=== PATIENT | male | born 1985 | race Two or more races ===

== ENCOUNTER 2021-07-29 11:47 | Outpatient (REF) | payer MEDICARE, MEDICAID, SELFPAY ==
[2021-07-29 12:09] LABS: MANUAL DIFF FLAG NO
[2021-07-29 13:17] LABS: Basophils Absolute Auto 0.1 X10*3/uL (0.0-0.2); Basophils Percent Auto 0.5 % (0-2); Eosinophils Absolute Auto 0.6 X10*3/uL (0.0-0.4); Hematocrit 47.2 % (42.0-52.0); Hemoglobin 16.2 g/dl (14.0-18.0); Imm Gran Abs Auto 0.06 X10*3/uL (0.00-0.03); Imm Gran Pct Auto 0.5 % (0.0-0.4); Lymphocytes Absolute Auto 3.1 X10*3/uL (1.2-4.9); Mean Corpuscular HGB Conc 34.3 g/dl (31.0-36.0); Mean Corpuscular Hemoglobin 30.9 pg (27.0-33.0); Mean Corpuscular Volume 90.1 fL (80.0-98.0); Mean Platelet Volume 8.6 fL (9.4-12.4); Monocytes Percent Auto 8.4 % (2-11); Neutrophils Absolute Auto 7.1 x10*3/uL (2.0-8.3); Neutrophils Percent Auto 59.6 % (45-73); Platelet Count 366 X10*3/uL (160-400); Red Blood Count 5.24 X10*6/uL (4.60-5.80); Red Cell Distribution Width 12.2 % (11.0-16.0); White Blood Count 11.9 X10*3/uL (4.8-10.8)
[2021-08-01 03:22] LABS: Immunoglobulin E 53 kU/L (<OR=114)
== END 2021-07-29 11:48 | disposition home or self-care (01) ==
LOC: HO.LAB 11:47
PROVIDERS: PCP Family Medicine; Visit Provider Family Medicine
DX: J45.909 Unspecified asthma, uncomplicated (principal); D72.10 Eosinophilia, unspecified
CPT/HCPCS: 36415; 82785; 85025

== ENCOUNTER 2022-06-11 16:46 | Outpatient (REF) | payer MEDICARE, MEDICAID, SELFPAY ==
[2022-06-11 18:04] LABS: Alanine Aminotransferase 44 U/L (0-40); Anion Gap 14 (12-20); Aspartate Amino Transferase 31 U/L (5-37); Blood Urea Nitrogen 12 mg/dL (9-16); Carbon Dioxide 24 mmol/L (22-29); Chloride 104 mmol/L (96-108); Estimated Glomerular Filt Rate > 60; Potassium 4.3 mmol/L (3.3-5.1); Sodium 138 mmol/L (135-145)
== END 2022-06-11 16:47 | disposition home or self-care (01) ==
LOC: HO.LAB 16:46
PROVIDERS: PCP Family Medicine; Visit Provider Family Medicine
DX: I10 Essential (primary) hypertension (principal); E78.00 Pure hypercholesterolemia, unspecified; Z79.899 Other long term (current) drug therapy
CPT/HCPCS: 36415; 80051; 82550; 82565; 84450; 84460; 84520

== ENCOUNTER 2022-12-10 10:40 | Outpatient (REF) | payer MEDICARE, MEDICAID, SELFPAY | END 2022-12-10 10:41 | disposition home or self-care (01) | LOC: HO.LAB 10:40 | PROVIDERS: PCP Family Medicine; Visit Provider Family Medicine | DX: E78.00 Pure hypercholesterolemia, unspecified (principal); M19.90 Unspecified osteoarthritis, unspecified site; Z79.899 Other long term (current) drug therapy | CPT/HCPCS: 36415; 82550; 84450; 84460; 85025; 85652; 86038; 86431 ==

== ENCOUNTER 2023-03-17 11:05 | Outpatient (REF) | payer MEDICARE, MEDICAID, SELFPAY | END 2023-03-17 11:06 | disposition home or self-care (01) | LOC: HO.XRAY 11:05 | PROVIDERS: PCP Family Medicine; Visit Provider Family Medicine | DX: Z13.89 Encounter for screening for other disorder (principal) ==

== ENCOUNTER 2023-04-05 16:44 | Outpatient (REF) | payer MEDICARE, MEDICAID, SELFPAY ==
--- NOTE | ~2023-04-05 | XR_ITS ---
EXAMINATION: XR CHEST CLINICAL INFORMATION: Asthma. COMPARISON: None available. TECHNIQUE: 2 views of the chest were obtained. FINDINGS: There is no gross pneumothorax. Lung volumes are low. Heart size is normal. No pleural effusion. No focal consolidation to suggest pneumonia. XR/XR chest 2V IMPRESSION: Low lung volumes. No evidence of pneumonia.
== END 2023-04-05 16:45 | disposition home or self-care (01) ==
LOC: HO.XRAY 16:44
PROVIDERS: PCP Family Medicine; Visit Provider Family Medicine
DX: J45.909 Unspecified asthma, uncomplicated (principal)
CPT/HCPCS: 71046

== ENCOUNTER 2023-05-13 10:11 | Outpatient (REF) | payer MEDICARE, MEDICAID, SELFPAY | END 2023-05-13 10:12 | disposition home or self-care (01) | LOC: HO.SH 10:11 | PROVIDERS: Visit Provider Family Medicine | DX: Z01.118 Encounter for examination of ears and hearing with other abnormal findings (principal); H93.293 Other abnormal auditory perceptions, bilateral | CPT/HCPCS: 92552; 92555; 92567 ==

== ENCOUNTER 2023-06-18 10:57 | Outpatient (REF) | payer MEDICARE, MEDICAID, SELFPAY ==
[2023-06-18 13:32] LABS: MANUAL DIFF FLAG NO
[2023-06-18 13:35] LABS: Basophils Absolute Auto 0.1 X10*3/uL (0.0-0.2); Basophils Percent Auto 0.5 % (0-2); Eosinophils Absolute Auto 0.8 X10*3/uL (0.0-0.4); Hematocrit 42.6 % (42.0-52.0); Hemoglobin 14.7 g/dl (14.0-18.0); Imm Gran Abs Auto 0.04 X10*3/uL (0.00-0.03); Imm Gran Pct Auto 0.4 % (0.0-0.4); Lymphocytes Absolute Auto 2.7 X10*3/uL (1.2-4.9); Lymphocytes Percent Auto 24.7 % (20-40); Mean Corpuscular HGB Conc 34.5 g/dl (31.0-36.0); Mean Corpuscular Hemoglobin 30.5 pg (27.0-33.0); Mean Corpuscular Volume 88.4 fL (80.0-98.0); Mean Platelet Volume 8.4 fL (9.4-12.4); Monocytes Absolute Auto 0.8 X10*3/uL (0.1-1.2); Monocytes Percent Auto 7.4 % (2-11); Neutrophils Absolute Auto 6.5 x10*3/uL (2.0-8.3); Platelet Count 333 X10*3/uL (160-400); Red Blood Count 4.82 X10*6/uL (4.60-5.80); Red Cell Distribution Width 12.2 % (11.0-16.0); White Blood Count 10.8 X10*3/uL (4.8-10.8)
[2023-06-18 13:46] LABS: Alanine Aminotransferase 21 U/L (0-40); Aspartate Amino Transferase 15 U/L (5-37)
== END 2023-06-18 10:58 | disposition home or self-care (01) ==
LOC: HO.HMGCLDS 10:57
PROVIDERS: PCP Family Medicine; Visit Provider Family Medicine
DX: E78.00 Pure hypercholesterolemia, unspecified (principal); J45.909 Unspecified asthma, uncomplicated; K21.9 Gastro-esophageal reflux disease without esophagitis; Z79.899 Other long term (current) drug therapy
CPT/HCPCS: 36415; 82550; 84450; 84460; 85025

== ENCOUNTER 2024-11-06 10:03 | Outpatient (AMB) | payer MEDICARE, MEDICAID, SELFPAY ==
--- NOTE | 2024-11-06 10:06 | A.OFFPC_ITS ---
Vital Signs 11/06/24 10:11 Height 5 ft 2 in Weight 183 lb BMI 33.5 BP 126/80 Blood Pressure Location Rt brachial Position Sitting Respiration 17 Pulse 75 Pulse Source Pulse Oximeter Temp 97.0 F Temp Source Temporal Artery Scan Pulse Oximetry (%) 98 Oxygen Delivery Method Room Air Intake Visit Reasons: routine Marketing/Sales Person Required: No Accompanied by: casting house laborer-Margaret Allergies No Known Allergies Allergy (Verified 11/06/24 10:06) Tobacco use date assessed: 11/06/24 HPI HPI Comments History of Present Illness Details The patient is a 39-year-old male presenting for a wellness examination. He is diagnosed with Autism Spectrum Disorder, and he has reportedly been taking medications including simvastatin for hyperlipidemia and metoprolol for essential hypertension. He is also being monitored for glaucoma by an band head saw operator. Although he is suspected of having asthma, this diagnosis has not been confirmed with testing. There were reports of using humidifiers but no official testing or use of inhalers. The patient denies episodes of wheezing or shortness of breath, even during physical activities such as frequent travels to [facility]. Historically, the patient has shown no complaints of pain, without history or presence of chest pain, headaches, joint pain, or respiratory distress. The patient denies previous surgeries and does not have a known family history of significant medical conditions like heart disease, cancer, or diabetes. Furthermore, there are no reported previous issues with substance use. Medical History: - Autism Spectrum Disorder - Essential Hypertension - Hyperlipidemia - Possible Glaucoma (under observation) - Suspected Asthma (no testing or treatm ent confirmed) Surgical History: - No prior surgeries reported Medications: - Simvastatin for Hyperlipidemia - Metoprolol for Essential Hypertension - Timolol eye drops (used for suspected glaucoma management) - Famotidine (use not specified) Family History: - Denies family history of heart disease , cancer, or diabetes Social: - Lives in a long-term. - Satisfactory energy levels, overall go od mood, and enjoys food in moderation. - Denies smoking, alcohol, or illicit dr ug use. - Notes anxiety sometimes, potentially r elated to his autism. [facility] Medical History (Updated 11/06/24 @ 10:27 by Nico Westbrook MD) Hyperlipidemia Hypertension Social History Housing: Other Housing Other:: long-term e-Cigarette/Vaping Use: Never Used service: No Current occupational status: employed Current occupation: [employer] Questionnaire PHQ-9 Over the last 2 weeks, how often have you been bothered by any of the following problems? 1. Little interest or pleasure in doing things: not at all 2. Feeling down, depressed, or hopeless: not at all 3. Trouble falling or staying asleep, or sleeping too much: not at all 4. Feeling tired or having little energy: not at all 5. Poor appetite or overeating: not at all 6. Feeling bad about yourself - or that you are a failure or have let yourself or your family down: not at all 7. Trouble concentrating on things, such as reading the newspaper or watching television: not at all 8. Moving or speaking so slowly that other people could have noticed. Or the opposite - being so fidgety or restless that you have been moving around a lot more than usual: not at all 9. Thoughts that you would be better off or of hurting yourself in some way: not at all Total score: 0 Depression Screening Interpretation: Positive Depression Screening Done: Yes 43896 - PHQ-9 Billing: Yes Source: Developed by Drs. Brien Barlow, Macarena Hickey, Rupesh Azul and colleagues, with an educational pranay from [employer]. Thrive Questionnaire Date Thrive assessed: 11/06/24 I am a: Patient What is your living situation today?: I have a steady place to live Within the past 12 months, did the food you bought not last and you didn't have the money to get more?: Never true Within the past 12 months, did you worry whether your food would run out before you got money to buy more?: Never true Do you have trouble paying for medicines?: No Do you have trouble getting transportation to medical appointments?: No Do you have trouble paying your heating and electricity bill?: No Do you have trouble taking care of your child, family member or friend?: No Do you have trouble with day-to-day activities such as bathing, preparing meals, shopping, managing finances, etc.?: No Are you currently unemployed and looking for a job?: No Are you interested in more education?: No THRIVE Score: 0 AUDIT C Alcohol Use Questionnaire (AUDIT-C) 1. How often do you have a drink containing alcohol?: Never 3. How often do you have six or more drinks on one occasion?: Never Total Score: 0 Score Reviewed/Action Taken: Yes DINA-7 AMB Questionnaire DINA-7 Date DINA - 7 assessed: 11/06/24 Feeling nervous, anxious, or on edge: 1 = Several days Not being able to stop or control worryin = Not at all Worrying too much about different things: 0 = Not at all Trouble relaxin = Not at all Being so restless that it is hard to sit still: 0 = Not at all Becoming easily annoyed or irritable: 0 = Not at all Feeling afraid as if something awful might happen: 0 = Not at all Total DINA-7 score (0-4 normal; 5-9 mild; 10-14 moderate; 15-21 severe): 1 Source: Developed by Drs. Brien Barlow, Macarena Hickey, Rupesh Azul and colleagues, with an educational pranay from [employer]. DINA-7 Assessment Billing DINA-7 Assessment Tool: DINA-7 Assessment 64109 Review of Systems Const Details: - General: Denies chest pain, nausea, vomiting, diarrhea, or abdominal pain. - Head: Denies headaches. - Ears: Reports no hearing loss. - Eyes: Reports vision problems monitored for glaucoma. - Psychiatric: Denies current feelings of sadness, depression, or thoughts of self-harm. All systems reviewed & are unremarkable except as noted in HPI and below Physical exam (Primary Care) Vital Signs: Last Vital Signs Temp 97.0 F 11/06/24 10:11 Pulse 75 11/06/24 10:11 Resp 17 11/06/24 10:11 BP 126/80 11/06/24 10:11 Pulse Ox 98 11/06/24 10:11 Oxygen Delivery Method Room Air 11/06/24 10:11 BMI result Body Mass Index 33.5 Tobacco/Smoking Status: Tobacco use Status Tobacco use date assessed 11/06/24 11/06/24 10:14 e-Cigarette/Vaping Use Never Used 11/06/24 10:14 PHQ-9: PHQ-9 Score PHQ-9: Total score 0 11/06/24 10:20 Depression Screening Interpretation: Positive Thrive Assessment: Date of Thrive Assessment Date Thrive assessed 11/06/24 11/06/24 10:20 Const Other: General: Alert and oriented, Well nourished, No acute distress. Eye: Pupils are equal, round and reactive to light, Intact accommodation, Extraocular movements are intact, Normal conjunctiva, Vision unchanged, Monitoring for glaucoma. HENT: Normocephalic, Atraumatic, Tympanic membranes are clear, Normal hearing, Oral mucosa is moist, No pharyngeal erythema, Ear canals patent. Respiratory: Lungs CTA bilaterally, No wheeze, Respirations are non-labored, No history of asthma symptoms. Cardiovascular: Regular rate, Regular rhythm, S1 auscultated, S2 auscultated, No murmur, Good pulses equal in all extremities, Normal peripheral perfusion, No edema. Gastrointestinal: Soft, Non-tender, Non-distended, Normal bowel sounds, No organomegaly. Musculoskeletal: Normal range of motion, Normal strength, No tenderness, No swelling, No deformity, Normal gait. Integumentary: Warm, Dry, [place], Intact. Neurologic: Alert, Oriented, Normal sensory, Normal motor function, No focal defects, Cranial Nerves II-XII are grossly intact, Normal deep tendon reflexes. Psychiatric: Cooperative, Appropriate mood & affect, Normal judgment, Reports occasional anxiety. Coding Level of Care Code New Pt Level 4 (37168) Complex EM visit Add On G2211 Diagnoses Hypertension I10 Hyperlipidemia E78.5 Asthma J45.909 Additional Codes DINA-7 Assessment Billing - DINA-7 Assessment Tool: DINA-7 Assessment 46573 ([id number]) PHQ-9 - 92994 - PHQ-9 Billing: Yes ([id number]) Assessment & Plan Assessment & Plan (1) Hypertension: Comment: - Continue with the current use of metoprolol. - Monitor blood pressure levels in subsequent visits. - Well controlled in clinic Code(s): I10 - Essential (primary) hypertension Category: Medical (2) Hyperlipidemia: Comment: - Consider adjusting usage of simvastatin pending current cholesterol panel results. - Ordered laboratory test for up-to-date cholesterol levels. Code(s): E78.5 - Hyperlipidemia, unspecified Category: Medical (3) Asthma: Comment: - Order spirometry to determine if criteria for asthma are met and if inhaler use is necessary. Code(s): J45.909 - Unspecified asthma, uncomplicated Category: Medical Plan 3. Glaucoma - Continue monitoring with ophthalmology. - Ensure compliance with timolol eye drops. 4. Autism Spectrum Disorder - Continue supportive care and behavioral monitoring I discussed the likelihood of essential hypertension and hyperlipidemia as major health considerations with the patient. We reviewed the current medication regimen and the potential need for refinements based on new diagnostic test results, such as the cholesterol panel. We addressed suspected asthma but clarified the need for spirometry to ensure accurate diagnosis before proceeding with inhaler use. The patient did not present immediate medical concerns and reported no significant distress apart from occasional anxiety, possibly linked to Autism Spectrum Disorder. Orders: Orders 2 Comprehensive Met. Panel Today E78.5 - Hyperlipidemia, unspecified, I10 - Essential (primary) hypertension Hepatitis A,B,C Profile Today E78.5 - Hyperlipidemia, unspecified, I10 - Essential (primary) hypertension HIV Ab/Ag Today E78.5 - Hyperlipidemia, unspecified, I10 - Essential (primary) hypertension Vitamin D 25-OH Total Today E78.5 - Hyperlipidemia, unspecified, I10 - Essential (primary) hypertension Syphilis Screen Today E78.5 - Hyperlipidemia, unspecified, I10 - Essential (primary) hypertension Spirometry w/o Bronchodilator Today J45.909 - Unspecified asthma, uncomplicated Complete Blood Count Auto Diff Today E78.5 - Hyperlipidemia, unspecified, I10 - Essential (primary) hypertension Hemoglobin A1c Today E78.5 - Hyperlipidemia, unspecified, I10 - Essential (primary) hypertension TSH reflex Free T4 Today E78.5 - Hyperlipidemia, unspecified, I10 - Essential (primary) hypertension Lipid Panel Today E78.5 - Hyperlipidemia, unspecified, I10 - Essential (primary) hypertension Patient Instructions: - Continue taking current medications as prescribed. - Go for blood work as ordered, including cholesterol and glucose levels. - Follow through with spirometry testing to assess for asthma. - Schedule follow-up appointment in a month. - Maintain current lifestyle, noting moderation in diet. - Return for any new concerning symptoms or as advised in follow-up.
[2024-11-06 10:11] VITALS: BP 126/80; PULSE 75; RESP 17; TEMP 36.1; O2SAT 98; BMI 33.5
== END 2024-11-06 10:45 | disposition home or self-care (01) ==
LOC: HO.HMCHD 10:04
PROVIDERS: PCP Student in an Organized Health Care Education/Training Program; Visit Provider Student in an Organized Health Care Education/Training Program
DX: I10 Essential (primary) hypertension (principal); E78.5 Hyperlipidemia, unspecified; J45.909 Unspecified asthma, uncomplicated

== ENCOUNTER 2024-11-06 10:34 | Outpatient (REF) | payer MEDICARE, MEDICAID, SELFPAY ==
[2024-11-06 13:22] LABS: MANUAL DIFF FLAG NO
[2024-11-06 13:30] LABS: Hematocrit 43.7 % (42.0-52.0); Hemoglobin 15.0 g/dl (14.0-18.0); Imm Gran Abs Auto 0.04 X10*3/uL (0.00-0.03); Imm Gran Pct Auto 0.4 % (0.0-0.4); Lymphocytes Absolute Auto 2.6 X10*3/uL (1.2-4.9); Mean Corpuscular HGB Conc 34.3 g/dl (31.0-36.0); Mean Corpuscular Hemoglobin 30.5 pg (27.0-33.0); Mean Corpuscular Volume 89.0 fL (80.0-98.0); NRBC Abs Auto 0.000 X10*3/uL (0.0-0.012); NRBC Pct Auto 0.0 /100WBC (0.0-0.2); Platelet Count 349 X10*3/uL (160-400); Red Blood Count 4.91 X10*6/uL (4.60-5.80); White Blood Count 10.3 X10*3/uL (4.8-10.8)
[2024-11-06 14:00] LABS: Alanine Aminotransferase 28 U/L (0-40); Albumin Level 4.7 g/dL (3.5-5.0); Alkaline Phosphatase 81 U/L (39-117); Anion Gap 11 (12-20); Aspartate Amino Transferase 22 U/L (5-37); Blood Urea Nitrogen 13 mg/dL (9-16); Calcium 9.3 mg/dL (8.4-10.2); Carbon Dioxide 27 mmol/L (22-29); Chloride 104 mmol/L (96-108); Cholesterol 120 mg/dL (<200); Estimated Glomerular Filt Rate > 60; HDL Cholesterol 35 mg/dL (>40); Potassium 4.3 mmol/L (3.3-5.1); Sodium 138 mmol/L (135-145); Total Protein 7.7 g/dL (6.5-8.0); Triglycerides 212 mg/dL (<150)
[2024-11-07 08:04] LABS: Syphilis Screen Nonreactive (Nonreactive)
[2024-11-07 08:33] LABS: HBS Num1 579.09 mIU/mL (0-7.99); HBc Num1 0.13 S/CO (0.00-0.79); HBsAGNum1 0.36 S/CO (0.00-0.99); HIV Num 1 0.07 S/CO (0.00-0.99); Hepatitis A Antibody IgM 0.16 Index (0-0.79); Hepatitis B Surface Antigen Negative (Negative); ~HepC Num1 0.33 S/CO (0.00-0.79); ~Hepatitis A Antibody IgM Nonreactive (Nonreactive); ~Hepatitis B Surface Antibody REACTIVE (Nonreactive); ~Hepatitis C Antibody Nonreactive (Nonreactive)
== END 2024-11-06 10:35 | disposition home or self-care (01) ==
LOC: HO.10HDL 10:34
PROVIDERS: Visit Provider Student in an Organized Health Care Education/Training Program
DX: I10 Essential (primary) hypertension (principal); E78.5 Hyperlipidemia, unspecified; F84.0 Autistic disorder
CPT/HCPCS: 36415; 80053; 80061; 82306; 83036; 84443; 85025; 86704; 86706; 86709; 86780; 86803; 87340; 87389; 96127; 99202

== ENCOUNTER 2025-01-04 10:58 | Outpatient (AMB) | payer MEDICARE, MEDICAID, SELFPAY ==
[2025-01-04 11:06] VITALS: BP 128/80; PULSE 75; TEMP 36.6; O2SAT 96; BMI 31.8
--- NOTE | 2025-01-04 11:06 | A.OFFPC_ITS ---
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: No Accompanied by: Self / Same As Patient Allergies No Known Allergies Allergy (Verified 01/04/25 11:07) Medication List - Last Reconciled 01/04/25 by Nico Westbrook MD acetaminophen Take two tablets by mouth every 6 hrs prn for headache orally 4 times a day PRN; brimonidine 0.2% drps ophthalmic (eye) brinzolamide-brimonidine 1-0.2 % (Simbrinza) drps ophthalmic (eye) famotidine 40 mg PO DAILY fluticasone furoate 200 mcg/actuation (Arnuity Ellipta) 1 inh PO QAM guaifenesin (Guaifed (guaifenesin)) takes twofor cough teaspoons po q 4hrs prn orally every 4 hours PRN; latanoprost 0.005% 1 drp ophthalmic (eye) DAILY loperamide (Anti-Diarrheal (loperamide)) 4 mg (2 x 2 mg) PO DAILY PRN 30 days metoprolol succinate ER 50 mg PO DAILY simvastatin 40 mg PO BEDTIME Tobacco use date assessed: 01/04/25 Dental Screening Dental Screen Date: 01/04/25 Did you have a dental visit in the last 12 months?: Yes Did you have a dental problem in the last 6 months where you did not have access to dental care?: No HPI HPI Comments History of Present Illness0 Details The patient is a 39-year-old male presenting for an annual physical examination. He has a new diagnosis of diabetes mellitus based on blood work from three months ago in November, which revealed an A1c of 6.5. The patient's chronic conditions include hypertension managed with metoprolol, hyperlipidemia treated with simvastatin 40 mg, and gastroesophageal reflux disease controlled with famotidine. He takes Anoro Ellipta for breathing issues and uses latanoprost eye drops for glaucoma, for which he sees an court monitor. He also has a history of obstructive sleep apnea and uses a CPAP machine every night. His caregiver has noted postprandial bowel movements, suspecting IBS, though this was assessed as a potentially normal gastrocolic reflex. A standing order for loperamide for diarrhea exists, but it has never been administered. Past blood work from November showed a normal CBC, and screenings for hepatitis and HIV were negative. Medical History: - Diabetes Mellitus Type 2, newly diagno sed - Hypertension - Hyperlipidemia - Gastroesophageal Reflux Disease - Obstructive Sleep Apnea - Glaucoma - Breathing issues, unspecified - History of negative Hepatitis and HIV screening Surgical History: - No prior surgical history was discusse d. Medications: - Metoprolol every morning for hypertens ion - Famotidine for acid reflux - Simvastatin (Zocor) 40 mg every night - Anoro Ellipta for breathing issues - Loperamide (Imodium) as needed for ryne rrhea (standing order, has not been used) - Latanoprost eye drops - Cough syrup as needed - Tylenol as needed for pain Family History: - No family history was discussed. Diagnostic Results: - Vitals: Blood pressure 128/80 mmHg. - Labs (from November visit, 3 months a go): - A1c: 6.5% - CBC: Normal - Hepatitis panel: Negative - HIV screen: Negative Social History: - Housing: The patient lives in a chcf. - Employment: He works in a [employer] at [employer]. - Diet: He reportedly consumes excessive amounts of candy and sweets, with minimal supervision over his diet at work. [facility] Medical History (Updated 01/04/25 @ 11:56 by Nico Westbrook MD) Glaucoma SHAMAR on CPAP GERD (gastroesophageal reflux disease) Diabetes Hyperlipidemia Hypertension Family History (Updated 01/04/25 @ 11:21 by Ana Maria aMn MA) Mother No problems noted. Father No problems noted. Social History Housing: Other Housing Other:: halfway Patient Tobacco Use Status: Never used Tobacco e-Cigarette/Vaping Use: Never Used service: No Current occupational status: employed and other Current occupation: [employer] Cognitive needs: No Hearing needs: No Vision needs: Yes (rx glasses) Questionnaire PHQ-9 Over the last 2 weeks, how often have you been bothered by any of the following problems? 1. Little interest or pleasure in doing things: not at all 2. Feeling down, depressed, or hopeless: not at all 3. Trouble falling or staying asleep, or sleeping too much: not at all 4. Feeling tired or having little energy: not at all 5. Poor appetite or overeating: not at all 6. Feeling bad about yourself - or that you are a failure or have let yourself or your family down: not at all 7. Trouble concentrating on things, such as reading the newspaper or watching television: not at all 8. Moving or speaking so slowly that other people could have noticed. Or the opposite - being so fidgety or restless that you have been moving around a lot more than usual: not at all 9. Thoughts that you would be better off or of hurting yourself in some way: not at all Total score: 0 Depression Screening Interpretation: Negative Depression Screening Done: Yes 09284 - PHQ-9 Billing: Yes Source: Developed by Drs. Brien Barlow, Macarena Hickey, Rupesh Azul and colleagues, with an educational pranay from [employer]. Thrive Questionnaire Date Thrive assessed: 01/04/25 I am a: Patient Within the past 12 months, did the food you bought not last and you didn't have the money to get more?: Never true Within the past 12 months, did you worry whether your food would run out before you got money to buy more?: Never true Do you have trouble paying for medicines?: No Do you have trouble getting transportation to medical appointments?: No Do you have trouble paying your heating and electricity bill?: No Do you have trouble taking care of your child, family member or friend?: No Do you have trouble with day-to-day activities such as bathing, preparing meals, shopping, managing finances, etc.?: No Are you currently unemployed and looking for a job?: No Are you interested in more education?: No THRIVE Score: 0 AUDIT C Alcohol Use Questionnaire (AUDIT-C) 1. How often do you have a drink containing alcohol?: Never 3. How often do you have six or more drinks on one occasion?: Never Total Score: 0 Score Reviewed/Action Taken: Yes DINA-7 AMB Questionnaire DINA-7 Date DINA - 7 assessed: 01/04/25 Feeling nervous, anxious, or on edge: 0 = Not at all Not being able to stop or control worryin = Not at all Worrying too much about different things: 0 = Not at all Trouble relaxin = Not at all Being so restless that it is hard to sit still: 0 = Not at all Becoming easily annoyed or irritable: 0 = Not at all Feeling afraid as if something awful might happen: 0 = Not at all Total DINA-7 score (0-4 normal; 5-9 mild; 10-14 moderate; 15-21 severe): 0 Source: Developed by Drs. Brien Barlow, Macarena Hickey, Rupesh Azul and colleagues, with an educational pranay from [employer]. DINA-7 Assessment Billing DINA-7 Assessment Tool: DINA-7 Assessment 59887 Review of Systems Narrative - Constitutional: Reports feeling good. - Cardiovascular: Denies chest pain. - Respiratory: Denies shortness of breath. - Gastrointestinal: Denies nausea or vomiting, reports normal urination and defecation. - Neurological: Denies headaches. All systems reviewed & are unremarkable except as reviewed in HPI and above Physical exam (Primary Care) Vital Signs: Last Vital Signs Temp 97.8 F 01/04/25 11:06 Pulse 75 01/04/25 11:06 BP 128/80 01/04/25 11:06 Pulse Ox 96 01/04/25 11:06 Oxygen Delivery Method Room Air 01/04/25 11:06 BMI result Body Mass Index 31.8 Tobacco/Smoking Status: Tobacco use Status Tobacco use date assessed 01/04/25 01/04/25 11:08 Patient Tobacco Use Status Never used Tobacco 01/04/25 11:08 e-Cigarette/Vaping Use Never Used 01/04/25 11:08 PHQ-9: PHQ-9 Score PHQ-9: Total score 0 01/04/25 11:21 Depression Screening Interpretation: Negative Thrive Assessment: Date of Thrive Assessment Date Thrive assessed 01/04/25 01/04/25 11:08 Narrative General: Alert and oriented, Well nourished, No acute distress. Eye: Pupils are equal, round and reactive to light, Intact accommodation, Extraocular movements are intact, Normal conjunctiva, Vision unchanged. Latanoprost eye drops in use. HENT: Normocephalic, Atraumatic, Tympanic membranes are clear, Normal hearing, Oral mucosa is moist, No pharyngeal erythema, Ear canals patent. Respiratory: Lungs CTA bilaterally, No wheeze, Respirations are non-labored. CPAP machine used every night. Cardiovascular: Regular rate, Regular rhythm, S1 auscultated, S2 auscultated, No murmur, Good pulses equal in all extremities, Normal peripheral perfusion, No edema. Blood pressure 128/80. Gastrointestinal: Soft, Non-tender, Non-distended, Normal bowel sounds, No organomegaly. Reports frequent diarrhea, likely IBS. Musculoskeletal: Normal range of motion, Normal strength, No tenderness, No swelling, No deformity, Normal gait. Integumentary: Warm, Dry, [place], Intact. Neurologic: Alert, Oriented, Normal sensory, Normal motor function, No focal defects, Cranial Nerves II-XII are grossly intact, Normal deep tendon reflexes. Psychiatric: Cooperative, Appropriate mood & affect, Normal judgment. Coding Level of Care Code Est Pt Prev Care 40-64y(54018) Diagnoses Type 2 diabetes mellitus without complication, without long-term current use of insulin E11.9 Diabetes mellitus type: type 2 Diabetes mellitus termite control service representative insulin use: without alf use Diabetes mellitus complication status: without complication Hypertension, unspecified type I10 Hypertension type: unspecified Other hyperlipidemia E78.49 Hyperlipidemia type: other hyperlipidemia Asthma, unspecified asthma severity, unspecified whether complicated, unspecified whether persistent J45.909 Asthma severity: unspecified severity Asthma persistence: unspecified Asthma complication type: unspecified Gastroesophageal reflux disease without esophagitis K21.9 Esophagitis presence: without esophagitis SHAMAR on CPAP G47.33; Z99.89 Other specified glaucoma, unspecified laterality H40.89 Glaucoma type: other Laterality: unspecified laterality Additional Codes PHQ-9 - 33281 - PHQ-9 Billing: Yes ([id number]) DINA-7 Assessment Billing - DINA-7 Assessment Tool: DINA-7 Assessment 34926 ([id number]) Assessment & Plan Assessment & Plan (1) Diabetes: Comment: - The patient's A1c of 6.5% from labs three months prior establishes a new diagnosis of diabetes. - Plan is to initiate metformin 500 mg once daily. - The patient and his caregiver were educated on the importance of dietary modifications, specifically reducing the intake of candies and sweets. - A follow-up is scheduled in three months, with repeat non-fasting blood work to be completed before the visit to assess glycemic control and guide titration of the metformin dose. Code(s): E11.9 - Type 2 diabetes mellitus without complications Category: Medical Qualifiers: Diabetes mellitus type: type 2 Diabetes mellitus termite control service representative insulin use: without alf use Diabetes mellitus complication status: without co mplication Qualified Code(s): E11.9 - Type 2 diabetes mellitus without complications (2) Hypertension: Comment: - The patient's blood pressure is well-controlled at 128/80 mmHg on his current regimen. - Plan is to continue metoprolol as prescribed. Code(s): I10 - Essential (primary) hypertension Category: Medical Qualifiers: Hypertension type: unspecified Qualified Code(s): I10 - Essential (primary) hypertension (3) Hyperlipidemia: Comment: - Condition is managed with simvastatin 40 mg. Plan is to continue the current medication. Code(s): E78.5 - Hyperlipidemia, unspecified Category: Medical Qualifiers: Hyperlipidemia type: other hyperlipidemia Qualified Code(s): E78.49 - Other hyperlipidemia (4) Asthma: Comment: - Order spirometry to determine if criteria for asthma are met and if inhaler use is necessary. Code(s): J45.909 - Unspecified asthma, uncomplicated Category: Medical Qualifiers: Asthma severity: unspecified severity Asthma persistence: unspecified Asthma complication type: unspecified Qualified Code(s): J45.909 - Unspecified asthma, uncomplicated (5) GERD (gastroesophageal reflux disease): Comment: - The patient is stable on famotidine. - Plan is to continue the current medication. Code(s): K21.9 - Gastro-esophageal reflux disease without esophagitis Category: Medical Qualifiers: Esophagitis presence: without esophagitis Qualified Code(s): K21.9 - Gastro-esophageal reflux disease without esophagitis (6) SHAMAR on CPAP: Comment: - The patient reports being adherent with CPAP therapy every night. - Plan is to encourage continued use due to its preventative health benefits. Code(s): G47.33 - Obstructive sleep apnea (adult) (pediatric); Z99.89 - Dependence on other enabling machines and devices Category: Medical (7) Glaucoma: Comment: - The patient is managed by an court monitor. - Plan is to continue latanoprost eye drops as directed. Code(s): H40.9 - Unspecified glaucoma Category: Medical Qualifiers: Glaucoma type: other Laterality: unspecified laterality Qualified Code(s): H40.89 - Other specified glaucoma Plan: Health Maintenance: - At age 39, the patient is not due for specific health screening maintenance. - A new diagnosis of diabetes was identified with an A1c of 6.5. - Dietary counseling was provided to reduce sugar and candy intake. - The patient is current on his flu and COVID-19 vaccinations. - Previous screenings for HIV and hepatitis were negative. - Follows with ophthalmology for glaucoma. - A follow-up appointment is scheduled in 3 months with repeat blood work to be done prior to the visit to monitor glucose levels. Patient was informed and verbally consented to the use of an ambient scribe for clinic note documentation during this visit. Plan I reviewed the patient's recent lab work with him and his caregiver, which s howed an A1c of 6.5, leading to a new diagnosis of diabetes. We discussed the management plan, which includes starting metformin 500 mg once daily. I emphasized that medication alone is not sufficient and stressed the importance of making dietary changes, specifically to cut down on candies and sweets. The plan is to follow up in three months and repeat his blood work beforehand to assess his response to treatment and determine if the metformin dose needs to be adjusted. I also reinforced the importance of continuing to use his CPAP machine every night for his sleep apnea. Orders: Orders Hemoglobin A1c 3 Months E11.9 - Type 2 diabetes mellitus without complications Medications: New metformin 500 mg PO DAILY 90 tabs 3RF Patient Instructions: - You have a new diagnosis of diabetes, which means your blood sugar is too high. - Begin taking your new medication, metformin 500 mg, once every morning to help with your blood sugar. - It is very important to change your diet. You must cut down on candy and sweets. - Continue taking all your other medications as prescribed, including those for blood pressure, cholesterol, acid reflux, breathing, and your eye drops. - Continue to use your CPAP machine every night for sleep apnea. - Schedule a follow-up appointment in 3 months. - You will need to get blood work done before your next appointment. This can be done anytime from one to 10 days before your visit.
== END 2025-01-04 11:43 | disposition home or self-care (01) ==
LOC: HO.HMCHD 10:59
PROVIDERS: PCP Student in an Organized Health Care Education/Training Program; Visit Provider Student in an Organized Health Care Education/Training Program
DX: Z00.00 Encounter for general adult medical examination without abnormal findings (principal); E11.69 Type 2 diabetes mellitus with other specified complication; I10 Essential (primary) hypertension; E78.49 Other hyperlipidemia; J45.909 Unspecified asthma, uncomplicated; K21.9 Gastro-esophageal reflux disease without esophagitis; G47.33 Obstructive sleep apnea (adult) (pediatric); Z99.89 Dependence on other enabling machines and devices; H40.89 Other specified glaucoma

== ENCOUNTER → 2025-01-04 10:58 | Outpatient (BNVA) | payer MEDICARE, MEDICAID, SELFPAY | PROVIDERS: PCP Student in an Organized Health Care Education/Training Program; Visit Provider Student in an Organized Health Care Education/Training Program | DX: Z00.00 Encounter for general adult medical examination without abnormal findings (principal); E11.9 Type 2 diabetes mellitus without complications; I10 Essential (primary) hypertension; E78.49 Other hyperlipidemia; J45.909 Unspecified asthma, uncomplicated; K21.9 Gastro-esophageal reflux disease without esophagitis; G47.33 Obstructive sleep apnea (adult) (pediatric); H40.89 Other specified glaucoma; Z79.899 Other long term (current) drug therapy; Z99.89 Dependence on other enabling machines and devices; Z13.31 Encounter for screening for depression; Z13.39 Encounter for screening examination for other mental health and behavioral disorders | CPT/HCPCS: 96127; 99396 ==